=== PATIENT | female | born 1955 | race Caucasian/White ===

== ENCOUNTER 2019-03-14 09:04 | Outpatient (CLI) | payer MEDICARE, OTHER ==
[~2019-03-14] VITALS: Ht 157.5 cm; Wt 54.0 kg
[2019-03-14 09:20] LABS: TOTAL HEMOGLOBIN 15.3 G/dl (12.0-16.0)
[2019-03-14] MEDS ORDERED: albuterol 2.5 MG/3 ML nebule ONE (09:45)
== END 2019-03-14 23:59 | disposition home or self-care (01) ==
LOC: RT 09:04
PROVIDERS: ATTEND Internal Medicine Pulmonary Disease
DX: J45.998 Other asthma (principal); J45.909 Unspecified asthma, uncomplicated; J98.4 Other disorders of lung
CPT/HCPCS: 85018; 94060; 94727; 94729; 94760